=== PATIENT | male | born 2000 | race Caucasian/White ===

== ENCOUNTER 2019-10-29 11:13 | Emergency (ER) | payer OTHER, SELFPAY | END 2019-10-29 11:54 | disposition home or self-care (01) | LOC: NAV ERS 11:13 | DX: S01.01XA Laceration without foreign body of scalp, initial encounter (principal); F17.210 Nicotine dependence, cigarettes, uncomplicated; W22.8XXA Striking against or struck by other objects, initial encounter | CPT/HCPCS: 12001 ==

== ENCOUNTER 2019-11-02 18:02 | Emergency (ER) | payer SELFPAY | END 2019-11-02 18:19 | disposition home or self-care (01) | LOC: NAV ERS 18:02 | DX: S01.01XD Laceration without foreign body of scalp, subsequent encounter (principal); F17.210 Nicotine dependence, cigarettes, uncomplicated; X58.XXXD Exposure to other specified factors, subsequent encounter ==

== ENCOUNTER 2023-07-30 08:03 | Emergency (ER) | payer SELFPAY ==
[2023-07-30] MEDS ORDERED: Ketorolac Tromethamine 60 MG/2 ML VIAL ONE (08:32)
== END 2023-07-30 08:52 | disposition home or self-care (01) ==
LOC: NAV ERS 08:03
DX: M25.531 Pain in right wrist (principal); Z87.891 Personal history of nicotine dependence
CPT/HCPCS: 96372; 99283; J1885